=== PATIENT | male | born 1945 | race Caucasian/White ===

== ENCOUNTER 2018-03-10 19:53 | Inpatient (IN) | payer OTHER ==
[~2018-03-10] VITALS: Ht 180.3 cm; Wt 84.4 kg
[~2018-03-10 19:53] MED LIST: ADVIL,NUPRIN,M200 MG PO; ASCORBIC ACID500 M3 PO; ASPIR 8181 M1 PO; CRESTOR10 MG PO; FUROSEMIDE40 MG PO; GLIMEPIRIDE1 MG PO; GLUCOPHAGE500 MG PO; ISOSORBIDE DINI30 MG PO; KEFLEX500 MG PO; LATANOPROST2.5 ML BOTH EYES; LUMIGAN 0.50 DROP/22 BOTH EYES; MOTRIN600 MG PO; NORVASC10 MG PO; TIMOPTIC-0100 DROP/5 BOTH EYES; ULTRACET1 TABLET PO; ZITHROMAX250 MG PO
[2018-03-10 21:03] LABS: BASOPHIL (%) 0.6 % (0-1); BASOPHIL COUNT 0.1 K/uL (0-0.1); EOSINOPHIL (%) 2.4 % (0-5); EOSINOPHIL COUNT 0.3 K/uL (0-0.3); HEMATOCRIT 33.3 % (38.0-50.0); HEMOGLOBIN 11.8 G/DL (12.5-16.6); IMMATURE GRANULOCYTE (%) 0.8 % (0.0-0.7); MCH 33.9 PG (29.0-34.0); MCHC 35.4 G/DL (30.0-36.0); MCV 95.7 FL (86-99); MONOCYTE (%) 11.7 % (3-12); MONOCYTE COUNT 1.3 K/uL (0-0.8); NEUTROPHIL (%) 66.5 % (45-76); NEUTROPHIL COUNT 7.2 K/uL (1.8-6.4); PLATELET COUNT 149 K/uL (156-360); RBC DIS.WIDTH-CV 14.2 % (11.8-14.6); RBC DIS.WIDTH-SD 49.8 % (39-53); RED BLOOD COUNT 3.48 M/uL (4.00-5.50); WHITE BLOOD COUNT 10.9 K/uL (4.1-10.2)
[2018-03-10 21:13] LABS: CHLORIDE 104 mEq/L (99-109); POTASSIUM 3.7 mEq/L (3.7-5.4); SODIUM 138 mEq/L (136-147)
[2018-03-10 21:15] LABS: GLUCOSE 173 mg/dL (70-99)
[2018-03-10 21:19] LABS: CREATININE 1.1 mg/dL (0.6-1.3); GFR ESTIMATE (CALCULATED) > 59 mL/min/ (58.99-99999); UREA NITROGEN (BUN) 15 mg/dL (9-23)
[2018-03-10 21:23] LABS: TROP-I INTERPRETATION NEGATIVE; TROPONIN-I < 0.01 ng/mL (0.0-0.30)
[2018-03-10] MEDS ORDERED: IMDUR30 MG PO (23:05)
[2018-03-10] MEDS ORDERED: PROTONIX40 MG PO (23:05)
[2018-03-10] MEDS ORDERED: ENDOCET 5-3251 EACH PO (23:06)
[2018-03-10] MEDS ORDERED: AFRIN,GENASAL D15 ML BOTH NARES (23:07)
[2018-03-10] MEDS ORDERED: ULTRAM50 MG PO (23:07)
[2018-03-11 01:59] VITALS: BP 139/70
[2018-03-11 03:43] LABS: BASOPHIL (%) 0.7 % (0-1); BASOPHIL COUNT 0.1 K/uL (0-0.1); EOSINOPHIL (%) 1.9 % (0-5); EOSINOPHIL COUNT 0.2 K/uL (0-0.3); HEMATOCRIT 33.3 % (38.0-50.0); HEMOGLOBIN 11.8 G/DL (12.5-16.6); IMMATURE GRANULOCYTE (%) 0.8 % (0.0-0.7); LYMPHOCYTE (%) 15.1 % (15-42); LYMPHOCYTE COUNT 1.8 K/uL (1.0-2.8); MCH 33.6 PG (29.0-34.0); MCHC 35.4 G/DL (30.0-36.0); MCV 94.9 FL (86-99); MONOCYTE (%) 12.4 % (3-12); MONOCYTE COUNT 1.5 K/uL (0-0.8); NEUTROPHIL (%) 69.1 % (45-76); NEUTROPHIL COUNT 8.2 K/uL (1.8-6.4); PLATELET COUNT 155 K/uL (156-360); RBC DIS.WIDTH-CV 14.1 % (11.8-14.6); RBC DIS.WIDTH-SD 49.4 % (39-53); RED BLOOD COUNT 3.51 M/uL (4.00-5.50); WHITE BLOOD COUNT 11.8 K/uL (4.1-10.2)
[2018-03-11 03:53] LABS: ALBUMIN 3.7 g/dL (3.2-4.8); CHLORIDE 101 mEq/L (99-109); SODIUM 137 mEq/L (136-147)
[2018-03-11 03:56] LABS: GLUCOSE 179 mg/dL (70-99); TOTAL PROTEIN 7.7 g/dL (6.4-8.3)
[2018-03-11 03:57] LABS: TOTAL BILIRUBIN 0.8 mg/dL (0.0-1.0)
[2018-03-11 03:59] LABS: ALKALINE PHOSPHATASE 96 IU/L (3-129); CREATININE 1.1 mg/dL (0.6-1.3); GFR ESTIMATE (CALCULATED) > 59 mL/min/ (58.99-99999)
[2018-03-11 04:00] VITALS: BP 141/67
[2018-03-11 04:00] LABS: UREA NITROGEN (BUN) 14 mg/dL (9-23)
[2018-03-11 04:01] LABS: AST (GOT) 20 IU/L (2-34); DIRECT BILIRUBIN 0.3 mg/dL (0.0-0.3)
[2018-03-11 04:02] LABS: ALT (GPT) 23 IU/L (3-49)
[2018-03-11 04:03] LABS: TROP-I INTERPRETATION NEGATIVE; TROPONIN-I 0.02 ng/mL (0.0-0.30)
[2018-03-11 07:38] VITALS: BP 170/74
[2018-03-11 10:12] LABS: TROP-I INTERPRETATION NEGATIVE; TROPONIN-I < 0.01 ng/mL (0.0-0.30)
[2018-03-11] MEDS ORDERED: ELIQUIS5 MG PO (11:27)
[2018-03-11 12:15] VITALS: BP 157/75
[2018-03-11 16:07] VITALS: BP 129/65
[2018-03-11 19:31] VITALS: BP 172/73
[2018-03-11 21:13] LABS: APPEARANCE CLEAR ((CLEAR)); BILIRUBIN NEGATIVE; BLOOD SMALL; COLOR YELLOW ((YELLOW)); GLUCOSE (STRIP) NEGATIVE; KETONES NEGATIVE; LEUKOCYTES NEGATIVE; NITRITE NEGATIVE; PROTEIN (STRIP) 30; SPECIFIC GRAVITY 1.027 (1.000-1.030); UROBILINOGEN 0.2 MG/DL (0.2-1.0)
[2018-03-11 21:17] LABS: BACTERIA NONE SEEN /HPF; EPITHELIAL CELLS NONE SEEN /HPF; MUCUS TRACE /LPF; RED BLOOD CELLS 0-5 /HPF (0-5); UCUL ADDED? NO; WHITE BLOOD CELLS 0-5 /HPF (0-5)
[2018-03-12 00:07] VITALS: BP 134/65
[2018-03-12 03:52] VITALS: BP 128/62
[2018-03-12 06:22] LABS: CHLORIDE 99 MEQ/L (99-109); CREATININE 1.1 MG/DL (0.6-1.3); GFR ESTIMATE (CALCULATED) > 59 mL/min/ (58.99-99999); GLUCOSE 158 mg/dL (70-99); POTASSIUM 4.2 MEQ/L (3.7-5.4); SODIUM 139 MEQ/L (136-147); UREA NITROGEN (BUN) 19 mg/dL (9-23)
[2018-03-12 07:36] VITALS: BP 155/69
[2018-03-12] MEDS ORDERED: AZITHROMYCIN500 M1 PO (07:48)
[2018-03-12] MEDS ORDERED: LOPRESSOR25 MG PO (07:48)
[2018-03-12] MEDS ORDERED: LISINOPRIL5 MG PO (07:48)
[2018-03-12] MEDS ORDERED: FUROSEMIDE40 MG PO (07:48)
[2018-03-12 11:55] VITALS: BP 134/67
== END 2018-03-12 12:07 | disposition home or self-care (01) | DRG 189 ==
LOC: EME 19:53 → EDOF 23:49 → 5SOUTH 23:49 → ENRESERV 23:56 → 5SOUTH 03-11 01:14
PROVIDERS: Emergency Medicine; Hospitalist; Physician Assistant
DX: J96.01 Acute respiratory failure with hypoxia (principal); I11.0 Hypertensive heart disease with heart failure; I50.33 Acute on chronic diastolic (congestive) heart failure; I48.0 Paroxysmal atrial fibrillation; E11.9 Type 2 diabetes mellitus without complications; J40 Bronchitis, not specified as acute or chronic; J84.10 Pulmonary fibrosis, unspecified; D64.9 Anemia, unspecified; E78.5 Hyperlipidemia, unspecified; E78.00 Pure hypercholesterolemia, unspecified; K21.9 Gastro-esophageal reflux disease without esophagitis; Z79.84 Long term (current) use of oral hypoglycemic drugs; Z79.82 Long term (current) use of aspirin
CPT/HCPCS: 71046; 71275; 80048; 80076; 81003; 82948; 83880; 84484; 85025; 87040; 93005; 93306; 94640; 94799; 99281; 99285; J1644; J1815; J1940